=== PATIENT | female | born 1970 | race Two or more races ===

== ENCOUNTER → 2019-12-14 15:10 | Outpatient (CLI) | payer OTHER, SELFPAY ==
[2019-12-20 16:12] LABS: HPV Reflexed? NOT INDICATED
== END ==
PROVIDERS: Visit Provider Obstetrics & Gynecology
DX: Z12.4 Encounter for screening for malignant neoplasm of cervix (principal)
CPT/HCPCS: 88175; G0145

== ENCOUNTER → 2021-01-09 14:30 | Outpatient (CLI) | payer OTHER, SELFPAY ==
[2021-01-15 20:55] LABS: HPV Reflexed? NOT INDICATED
== END ==
PROVIDERS: Visit Provider Obstetrics & Gynecology
DX: Z12.4 Encounter for screening for malignant neoplasm of cervix (principal)
CPT/HCPCS: 88175; G0145

== ENCOUNTER → 2021-08-23 | Outpatient (CLI) | payer OTHER, SELFPAY ==
--- NOTE | 2021-08-23 12:00 | EMB_PTH ---
PATIENT: ZACHARIAH HARMAN LOC: [facility] U#:[id number] AGE/SX: 51/F ROOM: RE08/23/[address]: Dr. Mauro Taveras MD : 1970 BED: DIS: 08/23/2021 SPEC #: [id number] RECD: 08/23/21 13:18 STATUS: DARCIE DOROTHEA #: [id number] KYRA: 08/23/21 12:[address]: Mauro Taveras DEPT: SURGICAL PATHOLOGY RECD BY: Rukhsana Forde Tissues: Endometrium, NOS Procedures: Surgery Specimen Level IV HEADER OPERATION: Endometrial biopsy PRE-OP DIAGNOSIS: Abnormal uterine bleeding TISSUE SUBMITTED: Endometrial biopsy MICROSCOPIC DIAGNOSIS Endometrial biopsy: Disordered proliferative endometrium to simple endometrial hyperplasia without atypia. NANDO:hung 08/24/2021 COMMENT Case has been reviewed in consultation with Dr. Eng who concurs with the above diagnosis. IDC:AM MICROSCOPIC DESCRIPTION Slides are reviewed. GROSS DESCRIPTION Received in fixative is one container labeled with the patient's name and designated endometrial biopsy. The specimen consists of multiple fragments of pink hemorrhagic soft tissue that in aggregate measure 3 x 2.5 x 0.3 cm. The specimen is totally submitted in one cassette. / SJ:rg 08/23/2021 TC:5 CPT: 12200
== END | disposition home or self-care (01) ==
LOC: LABSPEC 12:23
PROVIDERS: Visit Provider Obstetrics & Gynecology
DX: N93.9 Abnormal uterine and vaginal bleeding, unspecified (principal)
CPT/HCPCS: 88305

== ENCOUNTER → 2022-02-26 | Outpatient (CLI) | payer OTHER, SELFPAY ==
--- NOTE | 2022-02-26 | EMB_PTH ---
PATIENT: ZACHARIAH HARMAN LOC: [facility] U#:[id number] AGE/SX: 51/F ROOM: RE02/26/[address]: Dr. Anastasia Starr, : 1970 BED: DIS: 02/26/2022 SPEC #: [id number] RECD: 02/26/22 11:29 STATUS: DARCIE DOROTHEA #: [id number] KYRA: 02/26/22 00:[address]: Anastasia Starr DEPT: SURGICAL PATHOLOGY RECD BY: Rukhsana Forde Tissues: Endometrium, NOS Procedures: Surgery Specimen Level IV HEADER OPERATION: Endometrial biopsy PRE-OP DIAGNOSIS: N93.9 TISSUE SUBMITTED: Endometrial biopsy MICROSCOPIC DIAGNOSIS Endometrium, biopsy: Proliferative endometrium with minimal disorder. Abundant fibrinopurulent material. See comment. AM:hugn 02/27/2022 COMMENT Clinical correlation is suggested. MICROSCOPIC DESCRIPTION Slides are reviewed. GROSS DESCRIPTION Received in fixative is one container labeled with the patient's name and designated endometrial biopsy. The specimen consists of multiple irregular fragments of guevara-pink soft tissue mixed with mucoid tissue that in aggregate measure 2.5 x 2.5 x 0.2 cm. The specimen is totally submitted in one cassette. / SJ:hung 02/26/2022 TC:2 CPT: 10576
== END | disposition home or self-care (01) ==
LOC: LABSPEC 10:42
PROVIDERS: Visit Provider Student in an Organized Health Care Education/Training Program
DX: N93.9 Abnormal uterine and vaginal bleeding, unspecified (principal)
CPT/HCPCS: 88305

== ENCOUNTER → 2022-08-30 | Outpatient (CLI) | payer OTHER, SELFPAY ==
--- NOTE | 2022-08-30 | EMB_PTH ---
PATIENT: ZACHARIAH HARMAN LOC: [facility] U#:[id number] AGE/SX: 52/F ROOM: RE08/30/[address]: Dr. Anastasia Starr, : 1970 BED: DIS: 08/30/2022 SPEC #: [id number] RECD: 08/30/22 12:41 STATUS: DARCIE DOROTHEA #: [id number] KYRA: 08/30/22 00:[address]: Anastasia Starr DEPT: SURGICAL PATHOLOGY RECD BY: Tyler Dumont Tissues: Endometrium, NOS Procedures: Surgery Specimen Level IV HEADER OPERATION: Endometrial biopsy PRE-OP DIAGNOSIS: N85.01 TISSUE SUBMITTED: Endometrial biopsy MICROSCOPIC DIAGNOSIS Endometrium, biopsy: Proliferative endometrium with minimal disorder and focal glandular breakdown. AM:hung 09/02/2022 MICROSCOPIC DESCRIPTION Slides are reviewed. GROSS DESCRIPTION Received in fixative is one container labeled with the patient's name and designated endometrial biopsy. The specimen consists of mucoid light guevara tissue measuring in aggregate 2.4 x 1.8 x 0.1 cm. The specimen is totally submitted in one cassette. / AM:hung 08/30/2022 TC:5 [facility]: [id number]
== END | disposition home or self-care (01) ==
LOC: LABSPEC 12:46
PROVIDERS: Referring Provider Student in an Organized Health Care Education/Training Program; Visit Provider Student in an Organized Health Care Education/Training Program
DX: N85.01 Benign endometrial hyperplasia (principal)
CPT/HCPCS: 88305